=== PATIENT | female | born 1980 | race Caucasian/White ===

== ENCOUNTER 2018-04-04 10:56 | Emergency (ER) | payer BC ==
[2018-04-04 11:13] VITALS: RESP 18
[2018-04-04 12:25] LABS: BASO % 0.3 % (0.0-2.0); EOS # 0.2 K/uL (0.0-0.7); EOS % 2.5 % (0.0-4.0); HEMOGLOBIN 12.5 g/dL (11.0-16.0); LYMPH # 2.4 K/uL (1.0-4.3); LYMPH % 29.4 % (20.0-40.0); MEAN CELL VOLUME 86.5 fL (81.0-99.0); MEAN CORPUSCULAR HEMOGLOBIN 29.7 pg (27.0-31.0); MEAN CORPUSCULAR HGB CONC 34.4 g/dL (33.0-37.0); MEAN PLATELET VOLUME 8.6 fL (7.2-11.7); MONO # 0.4 K/uL (0.0-0.8); MONO % 5.4 % (0.0-10.0); NEUT # 5.1 K/uL (1.8-7.0); NEUT % 62.4 % (50.0-75.0); NRBC % 0.1 % (0.0-2.0); RBC 4.2 Mil/uL (3.80-5.20); RED CELL DISTRIBUTION WIDTH 12.6 % (11.5-14.5); WHITE BLOOD COUNT 8.2 K/uL (4.8-10.8)
--- NOTE | 2018-04-04 12:34 | C.PDOC ---
History Of Present Illness Patient presents to ED c/o left sided sharp, intermittent chest pain since . Pain worsens with deep breaths and movement, and started after patient worked out the day before for the first time at a gym. Patient seen by PMD and given pain medication, instructed to come to ED if symptoms did not improve. Patient denies cough, fever, SOB, abdominal pain, nausea/ vomiting, recent surgeries, recent prolonged travel or immobilization. She also denies h/o cardiac disease or blood clots in herself/immediate family. Time Seen by Provider: 04/04/18 11:35 Chief Complaint (Nursing): Chest Pain History Per: Patient History/Exam Limitations: no limitations Onset/Duration Of Symptoms: Days (4) Current Symptoms Are (Timing): Still Present Severity: Moderate Quality: Sharp, "Pain" Exacerbating Factors: Movement, Deep Breathing Past Medical History Reviewed: Historical Data, Nursing Documentation, Vital Signs Vital Signs: Last Vital Signs Temp 98.7 F 04/04/18 14:29 Pulse 69 04/04/18 14:29 Resp 18 04/04/18 14:29 BP 112/75 04/04/18 14:29 Pulse Ox 98 04/04/18 18:32 - Medical History PMH: No Chronic Diseases Family History: States: No Known Family Hx - Social History Hx Alcohol Use: No Hx Substance Use: No Review Of Systems Constitutional: Negative for: Fever, Chills Cardiovascular: Positive for: Chest Pain. Negative for: Palpitations Respiratory: Positive for: Pleuritic Pain. Negative for: Cough, Shortness of Breath, SOB with Excertion, Wheezing Gastrointestinal: Negative for: Nausea, Vomiting, Abdominal Pain, Diarrhea Skin: Positive for: Rash (psoriatic ) Neurological: Negative for: Headache, Dizziness Physical Exam - Physical Exam Appears: Well, Non-toxic, No Acute Distress, Other (speaking in full sentences) Skin: Rash (scattered psoriatic plaques on arm, chest, back) Eye(s): bilateral: Normal Inspection Oral Mucosa: Moist Chest: Symmetrical, Tenderness (left lower chest) Cardiovascular: Rhythm Regular, No Murmur Respiratory: Normal Breath Sounds, No Rales, No Rhonchi, No Wheezing Gastrointestinal/Abdominal: Normal Exam, Bowel Sounds, Soft, No Tenderness Extremity: Normal ROM, No Tenderness, No Pedal Edema, No Calf Tenderness Pulses: Left Dorsalis Pedis: Normal, Right Dorsalis Pedis: Normal Neurological/Psych: Oriented x3 ED Course And Treatment - Laboratory Results Result Diagrams: 04/04/18 12:19 04/04/18 12:19 ECG: Interpreted By Me, Viewed By Me (NSR 75 bpm, normal axis, no acute ST changes, T wave inversions III, aVF ) ECG Interpretation: No Acute Changes O2 Sat by Pulse Oximetry: 98 (RA) Pulse Ox Interpretation: Normal - Other Rad CXR X-Ray: Viewed By Me, Read By Radiologist Interpretation: Accession No. : [id number]. Patient Name / ID : BRITNI ALEXANDER / [id number]. Exam Date : 04/04/2018 12:22:46 ( Approved ). Study Comment : Sex / Age : F / 38Y. Creator : Tahir Light MD. Dictator : Tahir Light MD. Insurance Appraiser : [employer]ucc[employer] : Tahir Light MD. Approver2 : Report Date : 04/04/2018 14:41:40. My Comment : . Chest x- ray single frontal view. History: Chest pain. Comparison: 04/04/2018. Findings: Mild diffuse increased interstitial lung markings. Heart size within normal limits. Degenerative changes in the spine. Impression: Mild diffuse increased interstitial lung markings. - CT Scan/US cta chest Other Rad Studies (CT/US): Read By Radiologist, Radiology Report Reviewed CT/US Interpretation: Accession No. : [id number]. Patient Name / ID : BRITNI ALEXANDER / [id number]. Exam Date : 04/04/2018 13:14:16 ( Approved ). Study Comment : Sex / Age : F / 38Y. Creator : Tahir Light MD. Dictator : Tahir Light MD. Insurance Appraiser : [employer] : Tahir Light MD. Approver2 : Report Date : 04/04/2018 13:46:24. My Comment : . CT chest pulmonary angiogram. History: Chest pain. Elevated D-dimer. Comparison: None available. Technique: Multiple contiguous axial images were performed through chest utilizing pulmonary embolism protocol with intravenous contrast. Sagittal coronal reformatted images as well sagittal coronal reformatted MIPS images were. This CT exam was performed using one or more of the following dose reduction techniques: Automated exposure control, adjustment of the mA and/ or kV according to patient size, and/or use of iterative reconstruction technique. Findings: No evidence of acute pulmonary embolism. No evidence for acute aortic dissection. Visualized aorta is grossly preserved. No significant axillary adenopathy. Thyroid gland is preserved. No significant mediastinal or hilar adenopathy. No pleural or pericardial effusion. Punctate calcification in the liver on series 3, image 73, nonspecific. Mild nodularity of the adrenal glands. Mild degenerative changes in the spine. Right lung: Mild right basilar atelectasis. Left lun millimeter subpleural nodule along the lateral aspect of the left upper lobe on series 4 image. Mild left basilar atelectasis. Trachea thru central airways are patent. Impression: No evidence of acute pulmonary embolism. Bibasilar atelectasis/ consolidation as described above. Additional findings as above. Progress Note: Blood work, EKG, CXR ordered and reviewed. D-dimer mildly elevated, CTA chest ordered. CTA neg for acute PE, did show B/L atelectasis/ consolidation L>R. Will treat with PO antibiotics (doxycycline) for possible pneumonia. Blood work otherwise unremarkable, including troponin. Patient given copies of all studies and instructed to follow up with PMD in 1-2 days. She understands she should return to ED if symptoms worsen. Reevaluation Time: 14:20 Reassessment Condition: Improved (Patient resting comfortably, states she feels better. Patient is comfortable being discharged home, and vitals are WNL.) Medical Decision Making Medical Decision Making: Wells' Criteria for Pulmonary Embolism from [email or web address] on 04/04/2018 All calculations should be rechecked by clinician prior to use RESULT SUMMARY: 0.0 points Low risk group: 1.3% chance of PE in an ED population. Another study assigned scores 4 as PE Unlikely and had a 3% incidence of PE. INPUTS: Clinical signs and symptoms of DVT > 0 = No PE is #1 diagnosis OR equally likely > 0 = No Heart rate > 100 > 0 = No Immobilization at least 3 days OR surgery in the previous 4 weeks > 0 = No Previous, objectively diagnosed PE or DVT > 0 = No Hemoptysis > 0 = No Malignancy w/ treatment within 6 months or palliative > 0 = No Disposition Counseled Patient/Family Regarding: Studies Performed, Diagnosis, Need For Followup, Rx Given - Disposition Referrals: Adina Manning MD [Staff Provider] - Disposition: HOME/ ROUTINE Disposition Time: 14:20 Condition: STABLE Additional Instructions: FOLLOW UP WITH YOUR DOCTOR IN 1-2 DAYS USE MEDICATIONS DIRECTED RETURN TO ER IF SYMPTOMS WORSEN Prescriptions: Doxycycline Monohydrate 100 mg PO BID #14 tablet Naproxen 375 mg PO BID PRN #20 tablet PRN Reason: pain Instructions: Atelectasis, Costochondritis (DC) Forms: [employer] (French) Print Language: POLISH - Clinical Impression Clinical Impression: Chest wall pain, Atelectasis of left lung, Pneumonia
[2018-04-04 12:37] LABS: ALB/GLOB RATIO 1.4 (1.0-2.1); ALBUMIN 3.9 g/dL (3.5-5.0); ALT/SGPT 23 U/L (9-52); AST/SGOT 15 U/L (14-36); BLOOD UREA NITROGEN 7 mg/dL (7-17); CALCIUM 9.4 mg/dl (8.6-10.4); GFR AFRICAN-AMERICAN > 60; GFR NON-AFRICAN AMERICAN > 60
[2018-04-04 12:52] LABS: CK-MB < 0.22 ng/mL (0.0-3.38)
[2018-04-04] MEDS ORDERED: Iodixanol 320 MG/ML 100 ML BOTTLE IV ONE (13:07)
[2018-04-04 13:12] LABS: HCG,QUALITATIVE URINE NEGATIVE (NEGATIVE)
[2018-04-04 13:16] LABS: URINE BACTERIA RARE (<OCC); URINE BILIRUBIN NEGATIVE (NEGATIVE); URINE BLOOD NEGATIVE (NEGATIVE); URINE CLARITY Clear (Clear); URINE COLOR Straw (YELLOW); URINE GLUCOSE (UA) NORMAL (Normal); URINE LEUKOCYTE ESTERASE NEG Leu/uL (Negative); URINE PROTEIN NEGATIVE (NEGATIVE); URINE UROBILINOGEN NORMAL mg/dL (0.2-1.0)
--- NOTE | 2018-04-04 13:48 | CT ---
CT chest pulmonary angiogram History: Chest pain. Elevated D-dimer. Comparison: None available. Technique: Multiple contiguous axial images were performed through chest utilizing pulmonary embolism protocol with intravenous contrast. Sagittal coronal reformatted images as well sagittal coronal reformatted MIPS images were. This CT exam was performed using one or more of the following dose reduction techniques: Automated exposure control, adjustment of the mA and/or kV according to patient size, and/or use of iterative reconstruction technique. Findings: No evidence of acute pulmonary embolism. No evidence for acute aortic dissection. Visualized aorta is grossly preserved. No significant axillary adenopathy. Thyroid gland is preserved. No significant mediastinal or hilar adenopathy. No pleural or pericardial effusion. Punctate calcification in the liver on series 3, image 73, nonspecific. Mild nodularity of the adrenal glands. Mild degenerative changes in the spine. Right lung: Mild right basilar atelectasis. Left lun millimeter subpleural nodule along the lateral aspect of the left upper lobe on series 4 image. Mild left basilar atelectasis. Trachea thru central airways are patent. Impression: No evidence of acute pulmonary embolism. Bibasilar atelectasis/ consolidation as described above. Additional findings as above.
[2018-04-04 14:29] VITALS: BP 112/75; PULSE 69; TEMP 98.7
--- NOTE | 2018-04-04 14:43 | RAD ---
Chest x-ray single frontal view History: Chest pain. Comparison: 04/04/2018 Findings: Mild diffuse increased interstitial lung markings. Heart size within normal limits. Degenerative changes in the spine. Impression: Mild diffuse increased interstitial lung markings.
[2018-04-04 18:29] VITALS: O2SAT 98
--- NOTE | 2018-04-07 16:53 | CARD ---
APPROVED REPORT Date of service: 04/04/2018 EKG Measurement Heart [id number] ID [id number] <Conclusion> Normal sinus rhythm Low voltage QRS Cannot rule out Anterior infarct, age undetermined Abnormal ECG
== END 2018-04-04 14:34 | disposition home or self-care (01) ==
LOC: C.ER 10:56
DX: J98.11 Atelectasis (principal); J18.9 Pneumonia, unspecified organism; R07.89 Other chest pain
CPT/HCPCS: 71045; 71275; 80053; 81001; 82550; 82553; 84484; 84703; 85025; 85378; 93005; 99285; Q9967